=== PATIENT | male | born 1960 | race Caucasian/White ===

== ENCOUNTER → 2017-02-03 | Outpatient (CLI) | payer BC ==
[~2017-02-03] MED LIST: IOHEXOL 300 MG/ML 100ml INJECTION ONE; NORMAL SALINE 100 ML ONE; SALINE FLUSH 10ml SYRINGE ONE
--- NOTE | 2017-02-03 09:33 | DI ---
Indication: ITS.REASON: R31.9 HEMATURIA ,Z87.442 HX OF KIDNEY STONES PROCEDURE: CT RENAL W/WO CONTRAST: Encounter: Initial Comparison: None Technique: Axial CT images were performed through the abdomen and pelvis before and after the administration of intravenous contrast. Delayed postcontrast images were also performed. Coronal and sagittal 2-dimensional reformats. Automated Exposure Control and Iterative Reconstruction dose reducing techniques were utilized. Contrast: Omnipaque 300 100 mL Findings: The lung bases are clear. Noncontrast images show no evidence of renal stone disease on the right. There are couple tiny 1 to 2 mm upper pole stones on the left kidney. Left hydronephrosis and hydroureter to the level of an obstructing 6 mm distal ureteral stone at the ureterovesicular junction. Bladder is decompressed. Postcontrast images show normal enhancement of the liver. The gallbladder is surgically absent. The spleen, pancreas and adrenal glands are within normal limits. Kidneys enhance normally. No abdominal or pelvic lymphadenopathy. Bladder is grossly normal. No free fluid. No evidence of a bowel obstruction. Minimal sigmoid diverticulosis without acute diverticulitis. Bone windows show no acute findings. Delayed postcontrast images show excretion of contrast from both renal collecting systems without focal mass. Evidence of stasis in the left kidney due to the obstruction. Right ureter appears normal in course and caliber. Impression: Obstructing 6 mm left distal ureteral stone at the ureterovesicular junction. Urologic consultation is recommended. .
== END ==
LOC: IMA 07:44
PROVIDERS: ATTEND Registered Nurse
DX: R31.9 Hematuria, unspecified (principal); R10.9 Unspecified abdominal pain; Z87.442 Personal history of urinary calculi; N20.1 Calculus of ureter
CPT/HCPCS: 74178; J7050; Q9967